=== PATIENT | male | born 2000 | race Caucasian/White ===

== ENCOUNTER 2018-09-18 03:56 | Emergency (ER) | payer OTHER ==
[~2018-09-18] VITALS: Ht 167.6 cm; Wt 54.4 kg
[2018-09-18 03:58] VITALS: Ht 167.6 cm; Wt 54.4 kg
[2018-09-18 04:49] VITALS: BP 112/69
== END 2018-09-18 04:49 | disposition other institution (70) ==
LOC: ED 03:56
DX: Z02.89 Encounter for other administrative examinations (principal)